=== PATIENT | female | born 1985 | race Hispanic/Latino ===

== ENCOUNTER 2017-05-13 23:30 | Observation (INO) | payer SELFPAY ==
[~2017-05-13] VITALS: Ht 162.6 cm; Wt 83.0 kg
[2017-05-13 23:43] VITALS: BP 139/83; PULSE 50; RESP 20; O2SAT 100
--- NOTE | 2017-05-14 01:04 | ED.REPORT ---
HPI-Abd Pain F Under 40 Date of Service May 14, 2017 ED Provider: Radha Carlisle MD Patient is a 31 year old female who presents to the ED complaining of upper abdominal pain onset 1999 this evening. Associated symptoms include nausea, vomiting and bilateral lower back pain. She denies dysuria, urinary frequency, urgency or shortness of breath. The patient states that she tried taking 2 Hydrocodone at 2000 but had no relief. She reports that this pain is worse than when she had troubles with her gallbladder. The patient reports that her last menstrual cycle was two weeks ago. Nursing Notes Stated Complaint: ABDOMINAL PAIN Chief Complaint: Female Abdominal Pain Nursing Notes Reviewed: Yes Allergies: Coded Allergies: No Known Allergies (Verified , 06/19/16) General Time Seen by MD: 01:03 Chief Complaint Abdominal pain Hx Obtained From: Patient Sudden in Onset?: Yes Onset Occurred: 1 - 4 hours ago Symptom Duration: Since onset Location: : Abdomen upper Quality: Painful Radiation: : Back Severity: Current: Moderate Past Medical History Past Medical History denies a history of gallbladder disease or gastic ulcer Past Surgical History none reported Smoking History Unknown if Ever Smoker Social History Alcohol Use: Denies alcohol use Other Social History: Good social support, , Lives with children, Local resident Ambulatory Status Independent Review of Systems Constitutional: Denies: Chills, Fever Respiratory: Denies: Non-productive cough, Shortness of breath GI: Reports: Abdominal pain, Nausea, Vomiting Female: Denies: Dysuria, Urinary frequency, Urinary urgency Musculoskeletal: Reports: Back pain Complete sys rev & neg: except as marked. Skin: Denies Itching, Denies Rash Physical Exam Initial Vital Signs Vital Signs (First) Date Time Temp Pulse Resp B/P Pulse Ox O2 Delivery O2 Flow Rate FiO2 05/13/17 23:43 36.9 50 20 139/83 100 Room Air Initial VS: Reviewed General/Constitutional: Awake, Alert Respiratory / Chest: Atraumatic, Breath sounds NL, Breath sounds = bilat, No respiratory distress Cardiovascular: Heart rate NL, Regular rhythm, Heart sounds NL Abdomen: Atraumatic, Soft right upper quadrant tenderness with guarding BACK: bilateral CVA tenderness Head / Eyes: Atraumatic, Normocephalic, PERRL, EOMI Skin: Atraumatic, Color NL, No rash, Warm, Dry Neurologic: Oriented X3, Speech NL Upper Extremity / MS: Atraumatic, Full range of motion Psychiatric: Affect NL, Mood NL Interpretation & Diagnostics Interpretation & Diagnostics: ABDOMEN US: mild gallbladder wall thickening multiple gallstones positive sonographic Joe's sign no duct dilation Discussed with US tech Lab Results Interpretation Result Diagram: 05/14/17 0101 05/14/17 0101 Test 05/14/17 01:01 05/14/17 01:03 05/14/17 02:45 White Blood Count 9.9th/mm3 (3.8-10.1) Red Blood Count 4.51mil/mm3 (3.90-5.20) Hemoglobin 13.1g/dL (12.0-15.6) Hematocrit 37.9% (35.0-46.0) Mean Corpuscular Volume 84.0fL (81-100) Mean Corpuscular Hemoglobin 29.0pg (27.0-35.0) Mean Corpuscular Hemoglobin Concent 34.6% (32.0-37.0) Red Cell Distribution Width 13.6% (12.3-15.4) Platelet Count 194bil/L (150-400) Neutrophils (%) (Auto) 66.7% (40-74) Lymphocytes (%) (Auto) 24.5% (14-46) Monocytes (%) (Auto) 6.7% (4-12) Eosinophils (%) (Auto) 1.7% (0-5) Basophils (%) (Auto) 0.2% (0-3) Sodium Level 137mEq/L (134-144) Potassium Level 4.2mEq/L (3.5-5.2) Chloride Level 100mEq/L (97-108) Carbon Dioxide Level 22mmol/L (18-29) Blood Urea Nitrogen 15mg/dL (6-20) Creatinine 0.81mg/dL (0.57-1.00) Estimat Glomerular Filtration Rate 118mL/min (>59) Glucose Level 114mg/dL (60-99) Calcium Level 8.9mg/dL (8.5-10.1) Magnesium Level 2.0mg/dL (1.6-2.6) Total Bilirubin 0.4mg/dL (0.0-1.2) Aspartate Amino Transf (AST/SGOT) 20U/L (0-50) Alanine Aminotransferase (ALT/SGPT) 17U/L (0-32) Alkaline Phosphatase 81U/L (25-150) Total Protein 7.4g/dL (6.4-8.4) Albumin 4.0g/dL (3.4-5.0) Lipase 34U/L (13-60) Hold Das Top Tube Received (Received) Re-Eval/Medical Decision Med Decision/Clinical Course Med Decision/Clinical Course: 31-year-old female with intractable right upper quadrant pain and nausea and vomiting history of gallstones, ultrasound with positive Pickett sign, mild gallbladder wall thickening. Patient is afebrile without elevation in her white blood cell count. We will give IV antibiotics for signs of cholecystitis. Consultation : Referral / Consult Name: Roshan Bardales MD Consulted With: On-call physician Mohel: Accepts admit Note: Agrees with antibiotics, recommends pain control and nausea control, will see patient in the morning for cholecystectomy. Counseled Regarding: Diagnosis, Lab results Discharge & Departure Discharge Condition All VS Reviewed: Yes Condition: Stable Referrals: Nancy Baird MD (PCP) Casey Attestation Portions of this note were transcribed by Arabella Mohr. I, Dr. Carlisle personally performed the history, physical exam and medical decision-making; I reviewed and confirmed the accuracy of the information in the transcribed note. Signed by: Casey Abel, 05/14/17 copies to: Nancy Baird MD, Sarah C MD May 14, 2017 01:04 Nalini Mohr May 14, 2017 01:15
[2017-05-14 01:05] LABS: BASOPHILS % (AUTO) 0.2 % (0-3); EOSINOPHILS % (AUTO) 1.7 % (0-5); MONOCYTES % (AUTO) 6.7 % (4-12); NEUTROPHILS % (AUTO) 66.7 % (40-74); Platelet Count 194 bil/L (150-400)
[2017-05-14] MEDS ORDERED: Ondansetron 2 mg/mL 2 mL Inj IVPUSH ONE (01:05)
[2017-05-14] MEDS ORDERED: fentaNYL-PF 50 mCg/mL 2 mL Inj IVPUSH ONE (01:05)
[2017-05-14] MEDS ORDERED: Ondansetron 2 mg/mL 2 mL Inj ONE (01:05)
[2017-05-14] MEDS ORDERED: 0.9% Sodium Chloride 1,000 ML IV ONE (01:20)
[2017-05-14 03:22] LABS: APPEARANCE,URINE HAZY (CLEAR,HAZY); COLOR,URINE YELLOW (YELLOW); OCCULT BLOOD,URINE TRACE (NEGATIVE); UROBILINOGEN,URINE NORMAL (NORMAL)
[2017-05-14] MEDS ORDERED: Piperacillin-Tazo 3.375 Gm Inj 3.375 GM in Dextrose 5% Minibag Plus 50 ML IV ONE (03:25)
[2017-05-14 04:54] VITALS: BP 117/68; PULSE 72; RESP 16; O2SAT 97
[2017-05-14] MEDS: Ondansetron 2 mg/mL 2 mL Inj IVPUSH PRN ×3 (05:16→18:04)
[2017-05-14] MEDS ORDERED: HYDR-4003 PO (05:20)
[2017-05-14 05:25] VITALS: BP 131/87; PULSE 59; RESP 16; O2SAT 97
--- NOTE | 2017-05-14 06:05 | NUR ---
Admit Note Pt. arrived on floor at 0500. A&OX3. Ambulated well from stretcher to bed. Pt's peripheral IV intact and patent. Pt. reported pain and nausea. IV morphine and IV zofran given. by bedside. Will continue to monitor.
--- NOTE | 2017-05-14 08:12 | DRSVH ---
PROCEDURE: US ABDOMEN INDICATIONS: h.o gallstones, RUQ pain TECHNIQUE: Real-time scanning was performed of the abdominal and retroperitoneal organs, with image documentatio n. COMPARISON: [facility], US, US ABDOMEN, 06/20/2016, 0:40. FINDINGS: Liver length: 16.09 cm Gallbladder Wall Thickness: 3.60 mm CHD: 4.10 mm CBD: 5.60 mm Spleen length: 11.43 cm Right kidney length: 11.38 cm Left kidney length: 11.21 cm Aorta(Proximal): 2.23 cm Aorta(Mid): 1.53 cm Aorta(Distal): 1.60 cm RCIA: 1.11 cm LCIA: 1.20 cm Liver: Liver is normal in size. Mildly homogeneously increased echogenicity. Gallbladder: Multiple cholelithiasis. Gallbladder wall thickness measures at the upper limits of norm al. No pericholecystic fluid. Negative sonographic Pickett's sign. Biliary ducts: Intrahepatic bile ducts are non-dilated. Extrahepatic bile duct caliber is normal. Normal is 6-7 mm or less in diameter, or 10 mm or less post-cholecystectomy. Pancreas: Visualized portions of the pancreas are sonographically normal. Spleen: Spleen is normal in size and homogeneous in echotexture. Kidneys: Kidneys are normal in size and echotexture. No hydronephrosis or nephrolithiasis. No johan d masses. Aorta: Visualized aorta is normal in caliber at less than 3 cm. Iliacs: Proximal common iliac arteries are normal in caliber at less than 2.5 cm. IVC: Intrahepatic inferior vena cava is patent. Miscellaneous: No free abdominal fluid. IMPRESSION: 1. Cholelithiasis with gallbladder wall measuring at the upper limits of normal. Findings are indeter minate for acute cholecystitis. If patient's clinical exam remains indeterminate consider HIDA scan f or further evaluation. 2. Increased hepatic echogenicity most consistent with fatty infiltration of the liver. Dictated by: Srinivasan Alberto M.D. on 05/14/2017 at 8:08 Approved by: Srinivasan Alberto M.D. on 05/14/2017 at 8:10
[2017-05-14 08:53] VITALS: BP 116/76; PULSE 58; RESP 16; O2SAT 96
[2017-05-14] MEDS: Piperacillin-Tazo 3.375 Gm Inj 3.375 GM in Dextrose 5% Minibag Plus 50 ML IV SCH ×2 (10:25→17:31)
--- NOTE | 2017-05-14 13:57 | NUR ---
Nausea Patient reported nausea. 4mg ondansetron given. Reported 3-4/10 abdominal pain. Declined pain medications at this time. Patient independent in room, repositions self for comfort. Call light and tray table within reach. Will continue to monitor patient hourly.
--- NOTE | 2017-05-14 15:37 | NUR ---
Social Work: Initial Assessment/Multi-Disciplinary Rounds D: EMR reviewed. Please see Initial Assessment linked to this note for more information. Pt is a 31 y/o male admitted [place] - no readmit risk score assigned - for biliary colic, cholecystitis per H&P. Pt does not have insurance and threfore screens in for a full assessment. PCP is [facility]. SW met with pt at bedside to conduct initial assessment. Pt was alert and oriented x3. SW explained role and wrote phone number on white board. SW provided [facility] Discharge Planning Checklist and encouraged pt to contact SW for any discharge planning questions. Pt discussed in multidisciplinary rounds - pt to go to OR today. No SW needs identified at this time, no MD orders received. Pt lives at home with her family in [place]. Pt has children at home who her spouse will care for during her hospital stay. Pt is independent with all ADLs. Pt drives. Pt does not qualify for [facility] - pt is AEM. SW provided [facility] Application and explained how to complete, submit. Pt agreeable. SW will continue to follow for needs. Pt declined DPOA/advanced directive ppw at this time - states she is not interested. A: Pt who is independent at baseline and has the capacity for self-care. P: Pt anticipated to discharge home in 1-2 days via POV. No SW needs identified this time, no MD orders received. SW will continue to follow for needs until time of discharge. Addendum: 05/14/17 at 1544 by ADA MURRAY SS Amended: Links added.
--- NOTE | 2017-05-14 15:57 | HP ---
[address] [address] HISTORY AND PHYSICAL PATIENT: CHANDRIKA PIERSON : 1985 MR#: [id number] ADMIT: 05/14/2017 JOB ID: [id number] DATE OF SERVICE: 05/14/2017 SURGICAL CONSULTATION: We were asked to see the patient because of abdominal pain and gallstones. She describes right upper quadrant pain. It radiates into her back. It has been associated with nausea and vomiting. Her pain is better today than it was yesterday. She denies any history of abdominal operations. She has no history of jaundice, acholic stools, dark urine or pancreatitis. No history of hematemesis or melena. She had an abdominal ultrasound that demonstrated gallstones with a borderline thickened gallbladder wall. No pericholecystic fluid and a negative sonographic Pickett sign. DATE OF SERVICE: LABORATORY STUDIES: The white blood cell count was normal at 9.9 with a normal differential. Hematocrit 37.9, platelet count 194,000. Bilirubin 0.4, AST 20, ALT 17, alkaline phosphatase 81, lipase 34. Her pain has persisted but as stated earlier significantly better than previous. PAST MEDICAL HISTORY: ILLNESSES: None. MEDICATIONS: None. ALLERGIES TO MEDICATIONS: None. SOCIAL HISTORY: . She does speak German. Has excellent support. Her sister who also has gallstones is in the room. HABITS: Tobacco and alcohol none. REVIEW OF SYSTEMS: Otherwise negative. PHYSICAL EXAMINATION: Very pleasant, alert, smiling, no acute distress. BMI 31. Temperature is 36.8, brachial blood pressure 162/76, pulse 58, respiratory rate 16. O2 sat room air 96%. HEENT: PERRLA, EOMI. No scleral icterus. Neck: Trachea midline. Lungs: Clear. Cardiac examination: Regular rhythm. No murmurs or gallops appreciated. Abdomen: Mild right upper quadrant tenderness with deep inspiration but her abdomen is soft. Extremities: No edema. Skin: Nonjaundiced. Neurologic examination: Appropriate affect. No obvious cranial nerve deficits. Moves all extremities. Gait not tested. IMAGING STUDIES: Ultrasound: See above description and also see printed report. LABORATORY RESULTS: See above. IMPRESSION: Biliary colic. RECOMMENDATIONS: I discussed options with the patient. They include proceeding with a laparoscopic, possible open, cholecystectomy, possible cholangiograms. I discussed the operation recovery and also potential complications which include, but are not limited to, bleeding, infection, bile ductal injury, bile leak, and postoperative diarrhea and she agrees to proceed. She is scheduled for tomorrow morning at [address] Bardales performing the operation.
[2017-05-14 18:32] VITALS: BP 117/76; PULSE 78; RESP 18; O2SAT 98
[2017-05-14 21:11] VITALS: BP 119/81; PULSE 82; RESP 16; O2SAT 97
--- NOTE | 2017-05-14 23:22 | NUR ---
Fever On initial assessment, patients temperature lno480.2. Acetaminophen 975mg PO was administered. Patient was encouraged to cough and deep breath. Patient denied pain. Other VSS. Patient is NPO after midnight for scheduled surgery in the morning. Call light is within reach. Care continues.
[2017-05-15] VITALS (11 sets, daily range): BP systolic 92–113; BP diastolic 50–74; PULSE 64–83; RESP 15–19; O2SAT 91–99
[2017-05-15] MEDS: Piperacillin-Tazo 3.375 Gm Inj 3.375 GM in Dextrose 5% Minibag Plus 50 ML IV SCH ×2 (00:37→08:39)
[2017-05-15 07:04] LABS: BASOPHILS % (AUTO) 0.2 % (0-3); EOSINOPHILS % (AUTO) 0.6 % (0-5); MONOCYTES % (AUTO) 7.9 % (4-12); Mean Corpuscular Hemoglobin 28.8 pg (27.0-35.0); Mean Corpuscular Volume 84.9 fL (81-100); NEUTROPHILS % (AUTO) 78.4 % (40-74); Platelet Count 170 bil/L (150-400)
--- NOTE | 2017-05-15 08:55 | NUR ---
Off unit Pt to OR at 0855, report to BOLIVAR Gavin. VSS, A&O x 3, VALDOVINOS. Consent signed.
[2017-05-15] MEDS ORDERED: fentaNYL-PF 50 mCg/mL 2 mL Inj ONE (09:06)
[2017-05-15] MEDS ORDERED: Dexamethasone 4 mg/mL Inj ONE (09:06)
[2017-05-15] MEDS ORDERED: MetoCLOpramide 5 mg/mL 2 mL Inj ONE (09:06)
[2017-05-15] MEDS ORDERED: Glycopyrrolate 0.2 MG/ML 1mL Inj ONE (09:06)
[2017-05-15] MEDS ORDERED: Propofol 10 mg/mL 20 mL Inj ONE (09:06)
[2017-05-15] MEDS ORDERED: Lactated Ringer's 1,000 ML IV ONE (09:06)
[2017-05-15] MEDS ORDERED: Neostigmine 1 mg/mL 10 mL Inj ONE (09:06)
[2017-05-15] MEDS ORDERED: Ondansetron 2 mg/mL 2 mL Inj ONE (09:06)
[2017-05-15] MEDS ORDERED: Phenylephrine/NS 100 mCg/mL 10 mL Syringe IVPUSH ONE (09:06)
[2017-05-15] MEDS ORDERED: Lactated Ringer's 500 ML IV PRN (09:30)
[2017-05-15] MEDS ORDERED: Lactated Ringer's 1,000 ML IV SCH (09:30)
[2017-05-15] MEDS ORDERED: HYDROmorphone 1 mg/mL Inj IVPUSH PRN (09:30)
[2017-05-15] MEDS ORDERED: Atropine 0.4 mg/mL Inj IVPUSH PRN (09:30)
[2017-05-15] MEDS ORDERED: fentaNYL-PF 50 mCg/mL 2 mL Inj IVPUSH PRN (09:30)
[2017-05-15] MEDS ORDERED: EPHEDrine Sulfate 50 mg/mL Inj IVPUSH PRN (09:30)
[2017-05-15] MEDS ORDERED: MetoCLOpramide 5 mg/mL 2 mL Inj IVPUSH PRN (09:30)
[2017-05-15] MEDS ORDERED: Ondansetron 2 mg/mL 2 mL Inj IVPUSH PRN ×2 (09:30→10:25)
[2017-05-15] MEDS ORDERED: Phenylephrine 10,000 mCg/mL Inj IVPUSH PRN (09:30)
[2017-05-15] MEDS ORDERED: Labetalol 5 mg/mL 20 mL Inj IV PRN (09:30)
[2017-05-15] MEDS ORDERED: Bupivacaine-MPF 0.25% 30 mL Inj INFILTRATE ONE (09:42)
--- NOTE | 2017-05-15 10:23 | DRSVH ---
PROCEDURE: X-RAY OPERATIVE CHOLANGIOGRAM ([id number]) INDICATIONS: SURGERY COMPARISON: None. FINDINGS: Biliary ducts: The surgeon injected contrast into the biliary ducts after cannulation of the cystic duct stump. Visualized intra- and extrahepatic bile ducts are normal in caliber, without strictures. No intraluminal filling defects to suggest retained ductal stones or sludge. No evidence for iatro genic ductal injury. Duodenum: Contrast flows promptly through the sphincter of Oddi into the duodenum, which appears nor mal in caliber. IMPRESSION: Normal operative cholangiogram. Dictated by: Bryan Byrnes M.D. on 05/15/2017 at 10:22 Approved by: Bryan Byrnes M.D. on 05/15/2017 at 10:22
[2017-05-15] MEDS ORDERED: Acetaminophen IV 1,000 MG in IV Premix 1 EACH IV PRN (10:25)
[2017-05-15] MEDS ORDERED: Polyethylene Glycol (PEG) 17 Gm Powder PO ONE (10:25)
[2017-05-15] MEDS ORDERED: diphenhydrAMINE 25 mg Capsule PO PRN (10:25)
--- NOTE | 2017-05-15 11:09 | PCM.HPANE ---
Patient Data Surgeon Admitting Provider:Roshan Bardales MD Attending Provider:Roshan Bardales MD Primary Care Physician:Nancy Baird MD Other Provider: Reason for Visit Biliary Colic,Cholecystitis Ht/WT & BMI Height (Feet): 5 Height (Inches): 4.00 Weight (Kilograms): 83.000 Body Mass Index 31.24 Allergies Coded Allergies: No Known Allergies (Verified , 06/19/16) Past Anesthesia History Anesthesia History: Denies:: Abnormal Airway, Anesthesia Reactions, Difficult Intubation, Fam Anesthesia Reaction, Fam Malignant Hypertherm, Malignant Hyperthermia Diabetes History Hx Diabetes?: No MRSA MRSA: No Medications Reported Medications Hydrocodone-Acetaminophen 5-325 mg 1 Each Tablet1 Dose PO DIRECTED #20 05/14/17 History History of ENT Problems?: No HEENT History: Denies:: Abnormal Airway Cataracts Difficult Intubation Dysphagia Glaucoma Hearing Problem Sinus Problem TMJ Denture Type: None Teeth Condition: Within Normal Limits Hx of Heart Problems?: No Cardiovascular History: Denies:: AICD Abdominal Aortic Aneurism Atrial Fibrillation Cardiac Surgery Chest Pain Congestive Heart Failure Coronary Artery Disease Edema Heart Murmur Hypertension Irregular Heartbeat Pacemaker Peripheral Vascular Rheumatic Fever Thrombophlebitis Valvular Heart Disease Hx of Respiratory Problem?: No Respiratory History: Denies:: Asthma COPD Chest Surgery Cough Dyspnea Emphysema Hemoptysis Oxygen Administration Pneumonia Pulmonary Embolism Tuberculosis Use of C-PAP Machine Use of Inhalers / NEBS Hx Neurologic Problems?: No Neurological History: Denies:: Alzheimer's Disease CVA Dementia Dizziness Headaches Multiple Sclerosis Parkinson's Disease Peripheral Neuropathy Seizures TIA Hx of GI Problems?: No Gastrointestinal History: Denies:: Cirrhosis Diverticulitis Gall Bladder Disease Gastroesphageal Reflux Gastrointestinal Bleeding Heartburn Hepatitis Hiatal Hernia Liver Disease Rectal Bleeding Hx of Problems?: No Genitourinary History: Denies:: HX of Hemodialysis Kidney Stones Urinary Tract Infection HX of Peritoneal Dialysis: No Female Hx: Denies:: Currently Endometriosis Pelvic Inflammatory Problems with Breasts? Skin History: Denies:: History Skin Disorders? Pressure Ulcers Hx Musculoskeletal Problems?: No Musculoskeletal History: Denies:: Back Injury Degenerative Joint Fibromyalgia Joint Replacement Musculoskeletal Trauma Myasthenia Gravis Osteoarthritis Rheumatoid Arthritis Systemic Lupus Hx of Psycho/Social Problems?: No Psycho Social History: Denies:: Anxiety Bipolar Disorder Hx Depression Suicide Attempt Hx Surgeries?: No Hx Any Other Health Problems?: No Other History: Denies:: Cancer Endocrine Disease Hospitalization Thyroid Disease History Blood Transfusions: Positive for:: Accept Blood Products? Denies:: Blood Transfuse Reaction Blood Transfusions Hx Diabetes: No Hx Alcohol Use: Yes (Beer (occasionaly))Hx Substance Use: No Smoking Status: Unknown if Ever Smoker Stop/Bang Treated for Sleep Apnea?: No Do You Have a CPAP Machine?: No S-Snoring: Do You Snore Loudly: No T-Tired: feel tired, fatigued: No O-Obsered: Observed not breath: No P-Blood Pressure: treated: No B- Body Mass Index > 35 kg/m2: No A- Age over 50: No N- Neck Large Circumference: No G- Gender Male: No LINDA Total Score: 0 Risk Assessment Category Category 1A: Patient has history of documented sleep apnea, and HAS NOT received any narcotic, sedative or anesthesia administration during this stay. Category 1B: Patient has history of documented sleep apnea, and HAS received any narcotic , sedative or anesthesia administration during this stay Category 2: Patient has SUSPECTED Obstructive Sleep Apnea, and HAS received any narcotic , sedative or anesthesia administration during this stay. Category 3: Patient has SUSPECTED Obstructive Sleep Apnea and HAS NOT received narcotic, sedative or anesthesia administration during this stay. Category 4: Outpatient in Procedural Areas with known sleep apnea or who screen positive for High Risk via the STOP/BANG questionnaire. Exam Exam Vital Signs Vital Signs Date Time Temp Pulse Resp B/P Pulse Ox O2 Delivery O2 Flow Rate FiO2 05/15/17 06:18 37.8 83 18 113/74 97 Room Air General Appearance: Alert, Oriented X3, Cooperative, No Acute Distress HEENT/AIRWAY: MP 2, Neck Movement (FROM), Mouth Opening (3 FBMO) Lungs: Clear to Auscultation, Normal Air Movement Heart: Exam Unremarkable, Regular Rate/Rhythm, No Murmurs/Rubs/Gallops Meds/Labs/Diagnostics Labs Test 05/14/17 01:01 05/14/17 01:03 05/14/17 02:45 05/15/17 05:15 Magnesium Level 2.0mg/dL (1.6-2.6) Lipase 34U/L (13-60) Hold Das Top Tube Received (Received) Urine Color Yellow (YELLOW) Urine Appearance Hazy (CLEAR,HAZY) Urine pH 6.0 (5.0-8.0) Urine Specific [place] 1.015 (1.003-1.035) Urine Protein Negativemg/dL (NEG,TRACE) Urine Glucose (UA) Negativemg/dL (NEGATIVE) Urine Ketones Negativemg/dL (NEGATIVE) Urine Occult Blood Trace (NEGATIVE) Urine Nitrite Negative (NEGATIVE) Urine Bilirubin Negative (NEGATIVE) Urine Urobilinogen Normalmg/dL (NORMAL) Urine Leukocyte Esterase Small (NEGATIVE) Urine RBC 0-2/hpf (0-2) Urine WBC 6-10/hpf (0-5) Urine Epithelial Cells Many/hpf (NONE-MOD) Urine Crystals None seen (NONE SEEN) Urine Bacteria Many/hpf (NONE-FEW) Urine Hyaline Casts None/lpf (NONE) Urine Granular Casts None seen (NONE SEEN) Urine Waxy Casts None seen (NONE SEEN) Urine Red Blood Cell Casts None seen (NONE SEEN) Urine White Blood Cell Casts None seen (NONE SEEN) Urine Mucus None seen (None Seen) Urine Trichomonas None seen (NONE SEEN) Urine Yeast None (NONE SEEN) Urinalysis Comment None Urine Culture Reflexed Indicated White Blood Count 12.9th/mm3 (3.8-10.1) Red Blood Count 4.45mil/mm3 (3.90-5.20) Hemoglobin 12.8g/dL (12.0-15.6) Hematocrit 37.8% (35.0-46.0) Mean Corpuscular Volume 84.9fL (81-100) Mean Corpuscular Hemoglobin 28.8pg (27.0-35.0) Mean Corpuscular Hemoglobin Concent 33.9% (32.0-37.0) Red Cell Distribution Width 13.8% (12.3-15.4) Platelet Count 170bil/L (150-400) Neutrophils (%) (Auto) 78.4% (40-74) Lymphocytes (%) (Auto) 12.7% (14-46) Monocytes (%) (Auto) 7.9% (4-12) Eosinophils (%) (Auto) 0.6% (0-5) Basophils (%) (Auto) 0.2% (0-3) Sodium Level 137mEq/L (134-144) Potassium Level 3.9mEq/L (3.5-5.2) Chloride Level 101mEq/L (97-108) Carbon Dioxide Level 22mmol/L (18-29) Blood Urea Nitrogen 7mg/dL (6-20) Creatinine 0.68mg/dL (0.57-1.00) Estimat Glomerular Filtration Rate 145mL/min (>59) Glucose Level 97mg/dL (60-99) Calcium Level 8.2mg/dL (8.5-10.1) Total Bilirubin 1.5mg/dL (0.0-1.2) Aspartate Amino Transf (AST/SGOT) 44U/L (0-50) Alanine Aminotransferase (ALT/SGPT) 30U/L (0-32) Alkaline Phosphatase 85U/L (25-150) Total Protein 6.7g/dL (6.4-8.4) Albumin 3.8g/dL (3.4-5.0) Plan Impression Patient chart reviewed, patient interviewed and anesthestic plan with risks, benefits, and alternatives discussed, and informed consent obtained. NPO per Anesth. Guidelines: Yes ASA Physical Status: ASA1 Normal Healthy Anesthetic Plan: GA Bene/Risks/Altern/Consents: Yes HP Complete Prior to Induction: Yes Yusuf Ulrich MD May 15, 2017 08:54
--- NOTE | 2017-05-15 11:10 | PCM.ANEP1 ---
Post Anesthesia PACU Phase 1 Assessment Vital Signs Vital Signs Date Time Temp Pulse Resp B/P Pulse Ox O2 Delivery O2 Flow Rate FiO2 05/15/17 11:05 76 17 99/54 93 Room Air 05/15/17 11:00 74 18 99/55 93 Room Air 05/15/17 10:55 73 18 102/54 99 Simple Mask 6 05/15/17 10:50 75 18 99/50 99 Simple Mask 6 05/15/17 10:45 36.4 73 16 92/51 99 Simple Mask 8 05/15/17 06:18 37.8 83 18 113/74 97 Room Air Anesthetic Administered: GA Level of Alertness: Drowsy, not talking VALDOVINOS's with Equal Strength: Yes Pain: No Pain Scale Score: 3 Nausea or Vomiting: No CV Function & Hydration Stable: Yes Airway Device: Oralpharangeal Airway Oxygen Delivery: Simple Mask Lungs: Clear to Auscultation, Normal Air Movement Dermatome Level: Full Sensation PACU Phase 2 Assessment Complications: No Follow up Care: N/A Patient Instructions Provided: N/A Yusuf Ulrich MD May 15, 2017 11:09
--- NOTE | 2017-05-15 14:50 | OP ---
[address] [address] OPERATIVE REPORT PATIENT: CHANDRIKA PIERSON : 1985 MR#: [id number] ADMIT: 05/14/2017 JOB ID: [id number] DATE OF SURGERY: 05/15/2017 PREOPERATIVE DIAGNOSIS(ES): Acute cholecystitis. POSTOPERATIVE DIAGNOSIS(ES): Acute cholecystitis. PROCEDURE: Laparoscopic cholecystectomy with cholangiogram. SURGEON: Roshan Bardales MD ONLINE CONTENT DEVELOPER: Bryan Brownlee PA-C INDICATIONS: A 31-year-old female with signs and symptoms consistent with acute cholecystitis. FINDINGS: 1. A surgical processor was necessary for the camera operation and retraction. 2. The patient had acute cholecystitis. 3. The patient had a normal intraoperative cholangiogram. PROCEDURE: The patient was brought to the operating room. SCOAP protocol was followed. She was on therapeutic antibiotics. Surgical time-out was performed. The abdomen was prepped and draped in sterile fashion. We obtained access with a Veress needle, followed by placement of four optical trocars. The gallbladder was inflamed. We drained the gallbladder. There was some spillage of bile after this, but no spillage of stones. We now dissected out the triangle of Calot. We identified a relatively large cystic duct with an impacted gallstone that was milked back, right at the gallbladder/cystic duct junction. We dissected out the triangle of Calot completely. The cystic artery was divided with cautery right it entered the gallbladder. We now put a clip on the gallbladder side and made a cystic duct incision. We obtained our cholangiogram that showed no filling defects, normal intrahepatic anatomy. We removed our cholangiocatheter and placed two locking hemoclips in the relatively large cystic duct. We then divided the cystic duct and dissected the gallbladder out of the liver bed without spillage of stones but with a little bit of spillage of bile that was controlled and suctioned out. The gallbladder was removed in a bag to avoid wound contamination. The patient had a lot of sludge and one large sludge ball, as well as some smaller stones. We now irrigated out the liver bed. Hemostasis was obtained with electrocautery. There was no sign of bile leak. We checked our clips. We irrigated it out well due to the bile spillage and suctioned out all of our irrigation. Ports were removed and the wounds were closed with absorbable suture. The patient tolerated the procedure well.
[2017-05-15] MEDS ORDERED: Piperacillin-Tazo 3.375 Gm Inj 3.375 GM in Dextrose 5% Minibag Plus 50 ML IV SCH (16:30)
--- NOTE | 2017-05-15 17:18 | NUR ---
Post op Pt arrived back at 1110 on gurney, able to transfer to self to bed scooting across. Pain 7/10, PO medications given and called pharmacy for IV Tylenol. Dressings are all CDI, telfa with bio-occlusive. Pt denies nausea. RA, VSS, VALDOVINOS, A&O x 3. IV antibiotics still infusing then will s/l. Reminded pt to cough and deep breathe. Call light in reach, bed in low, continue q1 hour rounding.
[2017-05-16 00:50] VITALS: BP 96/55; PULSE 64; RESP 16; O2SAT 94
[2017-05-16 04:57] VITALS: BP 95/56; PULSE 70; RESP 18; O2SAT 96
--- NOTE | 2017-05-16 05:18 | NUR ---
Pain / mobility Pain well controlled with minimal use of PO oxycodone and tylenol. Ambulated in hallway, dressings clean and dry. Tolerated general diet without nausea. Hourly rounding ongoing.
[2017-05-16 09:56] VITALS: BP 118/79; PULSE 55; RESP 16; O2SAT 98
[2017-05-16 10:53] LABS: BASOPHILS % (AUTO) 0.1 % (0-3); EOSINOPHILS % (AUTO) 0.2 % (0-5); MONOCYTES % (AUTO) 5.5 % (4-12); Mean Corpuscular Hemoglobin 29.1 pg (27.0-35.0); Mean Corpuscular Volume 86.2 fL (81-100); NEUTROPHILS % (AUTO) 79.9 % (40-74); Platelet Count 169 bil/L (150-400)
--- NOTE | 2017-05-16 11:48 | PCM.DISURG ---
Surgical Discharge Instruction Date of Service May 16, 2017 Dates of Hospitalization Date of Hospital Admission May 14, 2017 at 04:12 Providers Admitting Physician: Roshan Bardales MD Primary Care Physician: Nancy Baird MD Attending Physician: Roshan Bardales MD Discharge Diagnosis Discharge Diagnosis cholecystitis Post Operative diagnosis laparoscopic cholecystectomy and cholangiogram Diet Discharge Diet: No restrictions, Low fat Activity Discharge Activity-General: No restrictions, Try not to overdue Dressing and Incisional Care Dressing Care: Allow Steri Stripes to fall off, Remove outer dressing after 24 hrs Hygiene: May shower Follow Up Plan Follow Up Plan follow up in 1-4 weeks with [facility] Roshan Bardales MD May 16, 2017 11:48
[2017-05-16] MEDS ORDERED: OXYC5TAB72 PO (11:49)
--- NOTE | 2017-05-16 14:57 | NUR ---
Discharge Pt discharged at 1428 walking to private vehicle with . Having mild pain 4/10, but declines meds. Home rx gotten from pharmacy and in pt possession. Pt up and ambulating in hallways prior to discharge. Dressings are CDI, upper left has mild shadowing of drainage from yesterday. IV removed intact. Pt has discharge instructions, care notes and rx's. All questions answered and has all belongings.
--- NOTE | 2017-05-16 16:07 | PROG NOTE ---
[address] [address] PROGRESS NOTE PATIENT: CHANDRIKA PIERSON : 1985 MR#: [id number] ADMIT: 05/14/2017 JOB ID: [id number] DATE: 05/16/2017 Postop day one laparoscopic cholecystectomy. The patient is doing quite well. She is ready for discharge.
--- NOTE | 2017-05-16 18:10 | DIS ---
[address] [address] DISCHARGE SUMMARY PATIENT: CHANDRIKA PIERSON : 1985 MR#: [id number] ADMIT: 05/14/2017 JOB ID: [id number] DIS: 05/16/2017 DISCHARGE DIAGNOSIS: Cholecystitis. OPERATIONS AND PROCEDURES: Laparoscopic cholecystectomy with cholangiogram. HOSPITAL COURSE: A 31-year-old female who was admitted with acute cholecystitis. She underwent a laparoscopic cholecystectomy and is ready for discharge on postop day number one. Her incision is in good shape, and she is afebrile. She will follow up in 1-4 weeks with the [facility] for routine wound check and pathology review. She is discharged on all preoperative medications and given a prescription for oxycodone 5 mg p.o. q.4 h. p.r.n. pain #10.
--- NOTE | 2017-05-20 14:23 | PATH ---
SURGICAL PATHOLOGY Attending Physician:Roshan Bardales MD CASE STATUS: Signed Out PATIENT NAME: CHANDRIKA PIERSON PID: [id number] : 1985 DATE COLLECTED:05/15/2017 00:00 SPECIMEN: Gallbladder CLINICAL HISTORY: BILARY COLIC,CHOLECYSTITIS 1). GALLBLADDER FINAL DIAGNOSIS: Gallbladder, Cholecystectomy: Acute cholecystitis and cholelithiasis. ICD10: K80.6 GROSS DESCRIPTION: The specimen is received in one formalin filled container labeled with the patient's name, sublabeled "gallbladder" and consists of an opened gallbladder in 2 pieces which measures 6.0 x 3.0 x 2.5 CM in aggregate. The cystic duct is possibly identified. The serosal surface is smooth. The wall is 0.2-0.3 CM in thickness. The mucosa is a light nair-brown in color. The lumen contains approximately 20 fragments of yellow-nair fragment in calculi which range in size from less than 0.1-1.0 CM in greatest dimension. 5 territory sales representative sections are submitted in one cassette. 05/17/2017DC ICD-9 CODES: CPT CODES: 1: 66287 Electronically Signed Out Lamberto Bruce MD [facility] [address], [place] [address] Technical component performed at [facility], [facility] [address], [place], [address]
== END 2017-05-16 14:45 | disposition home or self-care (01) ==
LOC: SED 23:30 → OSC 05-14 04:12 → INTOOBSV 05-14 04:12
PROVIDERS: ADMIT Surgery; ATTEND Surgery
PROC: [UNRECOGNIZED PROCEDURE] (2017-05-15)
PROC: 0FT44ZZ Resection of Gallbladder, Percutaneous Endoscopic Approach (ICD-10-PCS; principal; 2017-05-15 09:00)
DX: K80.00 Calculus of gallbladder with acute cholecystitis without obstruction (principal)
CPT/HCPCS: 36415; 47563; 74300; 76700; 80053; 81000; 81025; 83690; 83735; 85025; 87086; 87088; 94640; 96361; 96365; 96366; 96375; 96376; 99285; G0378; J0131; J1100; J1885; J2270; J2370; J2405; J2543; J2704; J2710; J2765; J3010; J7030; J7120; Q9967